=== PATIENT | female | born 1995 | race Two or more races ===

== ENCOUNTER 2023-12-31 01:26 | Emergency (ER) | payer SELFPAY ==
[~2023-12-31] VITALS: Ht 175.3 cm; Wt 86.2 kg
[2023-12-31 01:34] VITALS: BP 141/97; PULSE 90; RESP 18; O2SAT 99
== END 2023-12-31 01:35 | disposition left against medical advice (07) ==
LOC: ER 01:26 → EDBD 01:26 → ER 01:35
DX: R11.10 Vomiting, unspecified (principal); Z53.21 Procedure and treatment not carried out due to patient leaving prior to being seen by health care provider